=== PATIENT | female | born 1930 | race African-American/Black ===

== ENCOUNTER 2017-02-12 13:58 | Observation (INO) | payer MEDICARE ==
[~2017-02-12] VITALS: Ht 162.6 cm; Wt 64.0 kg
[2017-02-12] MEDS ORDERED: SODIUM CHLORIDE 0.9% 1,000 ML IV ONE (14:22)
[2017-02-12 14:46] LABS: BASOPHILS % 0.6 % (0.0-2.0); HEMATOCRIT. 38.8 % (36.0-48.0); HEMOGLOBIN. 12.9 g/dL (12.0-16.0); LYMPHOCYTES % 27.4 % (20.0-50.0); MEAN CORPUSCULAR HEMOGLOBIN 28.8 pg (28.0-32.0); MEAN CORPUSCULAR VOLUME 86.7 fL (81.0-99.0); MEAN PLATELET VOLUME 7.9 fl (7.4-10.4); MONOCYTES % 6.9 % (2.0-8.0); NEUTROPHILS % 64.1 % (40.0-76.0); PLATELET 238 x1000/uL (130-400); RED BLOOD CELL COUNT 4.48 mill/uL (4.2-5.4); RED CELL DISTRIBUTION WIDTH 13.5 % (11.6-14.6)
[2017-02-12 14:54] LABS: CHLORIDE 104 mEq/L (98-107); INR 1.1; PROTHROMBIN TIME 11.3 sec
[2017-02-12 15:00] LABS: CARBON DIOXIDE 26 mEq/L (21-32)
[2017-02-12 15:04] LABS: TROPONIN I < 0.02 ng/mL (0.00-0.04)
[2017-02-12] MEDS ORDERED: DILTIAZEM HCL 5MG/ML 5ML VIAL IV ONE (17:45)
[2017-02-12 21:30] VITALS: BP 151/86
[2017-02-12 22:14] VITALS: BP 151/86
[2017-02-12] MEDS ORDERED: GLYB5TAB7 PO (23:31)
[2017-02-13] VITALS (7 sets, daily range): BP systolic 120–134; BP diastolic 81–99
[2017-02-13] MEDS ORDERED: ONDANSETRON HCL 4MG/2ML VIAL IV PRN (00:15)
[2017-02-13] MEDS ORDERED: HYDROCODONE/ACETAMINOPHEN 5/325MG TABLET PO PRN (00:15)
[2017-02-13] MEDS ORDERED: ACETAMINOPHEN 325MG TABLET PO PRN (00:15)
[2017-02-13] MEDS ORDERED: CLONIDINE 0.1MG TABLET PO PRN (00:15)
[2017-02-13] MEDS ORDERED: ENOXAPARIN 40MG/0.4ML SYR SUBCUT SCH (00:15)
[2017-02-13] MEDS: ASPIRIN 81MG EC TABLET PO SCH ×2 (00:29→08:49)
[2017-02-13] MEDS: METOPROLOL TARTRATE 50MG TABLET PO SCH ×3 (00:29→21:13)
[2017-02-13] MEDS: PANTOPRAZOLE 40MG DR TABLET PO SCH ×3 (00:29→21:14)
[2017-02-13] MEDS ORDERED: DEXTROSE 50% WATER 50ML SYRINGE IV PRN (00:30)
[2017-02-13] MEDS: INSULIN LISPRO 100 UNITS/ML SUBCUT SCH ×4 (06:07→21:00)
[2017-02-13] MEDS: BLOOD SUGAR DIAGNOSTIC STRIP TEST SCH ×4 (06:07→21:13)
[2017-02-13 07:14] LABS: CREATINE KINASE MB FRACTION 2.2 ng/mL (0.5-3.6); TROPONIN I 0.03 ng/mL (0.00-0.04)
[2017-02-13 15:13] LABS: CREATINE KINASE 169 IU/L (26-192); CREATINE KINASE MB FRACTION 2.6 ng/mL (0.5-3.6); TROPONIN I < 0.02 ng/mL (0.00-0.04)
== END 2017-02-13 22:36 | disposition short-term general hospital (02) ==
LOC: ER 13:58 → INTOOBSV 15:34 → 5WST 15:34 → EDBEDREQTM 15:37 → EDBEDREQ 15:37 → ENRESERV 19:22
PROVIDERS: ADMIT Internal Medicine; ATTEND Internal Medicine
DX: I47.1 Supraventricular tachycardia (principal); J44.9 Chronic obstructive pulmonary disease, unspecified; I51.7 Cardiomegaly; I10 Essential (primary) hypertension; E11.9 Type 2 diabetes mellitus without complications
CPT/HCPCS: 36415; 71010; 80053; 82550; 82553; 82962; 83880; 84484; 85025; 85610; 93005; 93306; 96361; 96372; 96374; 99291; G0378; J1650; J3490; J7030